=== PATIENT | female | born 1975 | race Caucasian/White ===

== ENCOUNTER 2016-10-03 15:18 | Outpatient (CLI) | payer OTHER | END 2016-10-03 15:19 | disposition critical access hospital (66) | LOC: EMS 15:18 | PROVIDERS: ATTEND Surgery | DX: R09.89 Other specified symptoms and signs involving the circulatory and respiratory systems (principal) | CPT/HCPCS: A0425; A0427 ==

== ENCOUNTER 2016-10-03 15:25 | Emergency (ER) | payer OTHER ==
[2016-10-03] MEDS ORDERED: predniSONE 20 MG TABLET PO STA (15:33)
[2016-10-03] MEDS ORDERED: predniSONE 20 MG TABLET ONE (15:34)
--- NOTE | 2016-10-03 15:47 | ED Physician Documentation ---
History of Present Illness - Stated complaint Stated Complaint: ALL. REACTION - Chief complaint Chief Complaint: Allergic Rx - History obtained from History obtained from: Patient, Family, EMS - History of Present Illness Timing: Today Pain level max: 0 Pain level now: 0 Improved by: epinephrine Worsened by: eating shellfish - Additonal information Additional information: eating shellfish and oysters today. [place] swelling and "scratchy" in her throat. Given 0.3mg IM epi and benadryl enroute. Has not had allergic reactions to shellfish in the past. Review of Systems Constitutional: denies: Fever, Chills Nose: denies: Rhinorrhea / runny nose, Congestion Throat: denies: Sore throat Cardiac: denies: Chest pain / pressure Respiratory: denies: Cough GI: denies: Abdominal Pain, Nausea, Vomiting, Diarrhea Skin: denies: Rash Musculoskeletal: denies: Neck pain, Back pain Neurologic: denies: Focal weakness, Numbness, Headache PD PAST MEDICAL HISTORY - Past Medical History Past Medical History: No - Past Surgical History Past Surgical History: Yes - Present Medications Home Medications: Ambulatory Orders Medication Instructions Recorded Confirmed Loratadine [Claritin] 10 mg PO DAILY PRN 10/03/16 10/03/16 Prednisone 40 mg PO DAILY #10 tablet 10/03/16 10/03/16 - Allergies Allergies/Adverse Reactions: Allergies Allergy/AdvReac Type Severity Reaction Status Date / Time avocado AdvReac Unknown Verified 10/03/16 20:40 banana AdvReac Unknown Verified 10/03/16 20:40 pineapple AdvReac Unknown Verified 10/03/16 20:40 - Social History Does the pt smoke?: No Smoking Status: Never smoker PD ED PE NORMAL - Vitals Vital signs reviewed: Yes - General General: Alert and oriented X 3, No acute distress, Well developed/nourished - HEENT HEENT: PERRL, Moist mucous membranes, Other (mild uvula swelling, otherwise normal pharynx exam. normal phonation. no trismus or stridor) - Neck Neck: Supple, no meningeal sign - Cardiac Cardiac: RRR, Strong equal pulses - Respiratory Respiratory: No respiratory distress, Clear bilaterally - Abdomen Abdomen: Soft, Non tender, Non distended - Derm Derm: Warm and dry, No rash - Neuro Neuro: Alert and oriented X 3 - Psych Psych: Normal mood, Normal affect Results - Vitals Vitals: Vital Signs - 24 hr 10/03/16 10/03/16 10/03/16 15:24 16:19 17:18 Temperature 36.2 C L Heart Rate 123 H 88 83 Respiratory 26 H 16 16 Rate Blood Pressure 152/88 H 127/67 136/73 H O2 Saturation 100 100 100 Oxygen O2 Source Room air PD MEDICAL DECISION MAKING - ED course Complexity details: re-evaluated patient, considered differential, d/w patient ED course: Patient is a 40-year-old female who presents to the emergency department what appears to be an allergic reaction to shellfish. Given epinephrine and Benadryl prior to arrival. Given prednisone here. Observed in the emergency department for over 2 hours post epinephrine administration with no recurrence of symptoms. Tolerating p.o. without difficulty. Normal phonation. Will place on steroids for the next few days and follow-up with her doctor. Patient and family counseled regarding signs and symptoms for which I believe and urgent re- evaluation would be necessary. Patient with good understanding of and agreement to plan and is comfortable going home at this time This document was made in part using voice recognition software. While efforts are made to proofread this document, sound alike and grammatical errors may occur. Departure - Departure Disposition: 01 Home, Self Care Clinical Impression: Allergic reaction Qualifiers: Encounter type: initial encounter Qualified Code(s): T78.40XA - Allergy, unspecified, initial encounter Condition: Good Instructions: ED Allergic Reaction General Other Follow-Up: your,doctor in 1 week [Other] Prescriptions: Prednisone 40 mg PO DAILY #10 tablet Comments: You appear to be allergic to shellfish. Avoid shellfish in the future. Return if you worsen. Your blood pressure was elevated today on check in to the emergency department. This does not mean that you have hypertension, it is a common phenomenon to check into the emergency department and have elevated blood pressure. I recommend that you see your primary care physician within the week to have it rechecked when you're feeling better. Discharge Date/Time: 10/03/16 17:19
[2016-10-03 17:18] VITALS: BP 136/73
== END 2016-10-03 17:19 | disposition home or self-care (01) ==
LOC: ED 15:25
DX: T78.40XA Allergy, unspecified, initial encounter (principal); R03.0 Elevated blood-pressure reading, without diagnosis of hypertension
CPT/HCPCS: 99283

== ENCOUNTER 2016-10-03 20:22 | Outpatient (CLI) | payer OTHER | END 2016-10-03 20:23 | disposition critical access hospital (66) | LOC: EMS 20:22 | PROVIDERS: ATTEND Surgery | DX: R09.89 Other specified symptoms and signs involving the circulatory and respiratory systems (principal) | CPT/HCPCS: A0425; A0427 ==

== ENCOUNTER 2016-10-03 20:37 | Observation (INO) | payer OTHER ==
[2016-10-03] MEDS ORDERED: methylPREDNISolone SUCCINATE 125 MG/2 ML VIAL IVP STA (20:40)
--- NOTE | 2016-10-03 20:42 | ED Physician Documentation ---
History of Present Illness - Stated complaint Stated Complaint: ALLERGIC REACTION - Chief complaint Chief Complaint: Resp - History obtained from History obtained from: Patient, EMS - History of Present Illness Timing: Today Pain level max: 0 Pain level now: 0 Improved by: epinephrine Worsened by: shellfish - Additonal information Additional information: Patient is a 40-year-old female who presents to the emergency department after an allergic reaction earlier today to presumed shellfish. She was observed in the emergency department, felt better and was sent home on steroids. She began to have throat swelling again approximately 3 hours after discharge, was given epinephrine and Benadryl again by EMS and brought back to the emergency department. Currently states that she is feeling better. Per EMS she did have some stridor. Review of Systems Ten Systems: 10 systems reviewed and negative Constitutional: denies: Fever, Chills Nose: denies: Rhinorrhea / runny nose, Congestion Throat: denies: Sore throat Respiratory: denies: Cough GI: denies: Nausea, Vomiting, Diarrhea : denies: Now EGA Skin: denies: Rash Musculoskeletal: denies: Neck pain, Back pain Neurologic: denies: Headache PD PAST MEDICAL HISTORY - Past Medical History Past Medical History: No - Past Surgical History Past Surgical History: Yes - Present Medications Home Medications: Ambulatory Orders Medication Instructions Recorded Confirmed Loratadine [Claritin] 10 mg PO DAILY PRN 10/03/16 10/03/16 Prednisone 40 mg PO DAILY #10 tablet 10/03/16 10/03/16 - Allergies Allergies/Adverse Reactions: Allergies Allergy/AdvReac Type Severity Reaction Status Date / Time avocado AdvReac Unknown Verified 10/03/16 20:40 banana AdvReac Unknown Verified 10/03/16 20:40 pineapple AdvReac Unknown Verified 10/03/16 20:40 - Social History Does the pt smoke?: No Smoking Status: Never smoker PD ED PE NORMAL - Vitals Vital signs reviewed: Yes - General General: Alert and oriented X 3, No acute distress, Well developed/nourished - HEENT HEENT: PERRL, Ears normal, Moist mucous membranes, Other (Mild swelling of the uvula, otherwise normal exam) - Neck Neck: Supple, no meningeal sign - Cardiac Cardiac: RRR, Strong equal pulses - Respiratory Respiratory: No respiratory distress, Clear bilaterally - Abdomen Abdomen: Soft, Non tender, Non distended - Derm Derm: Warm and dry, No rash - Neuro Neuro: Alert and oriented X 3 - Psych Psych: Normal mood, Normal affect Results - Vitals Vitals: Vital Signs - 24 hr 10/03/16 20:37 Temperature 36.6 C Heart Rate 129 H Respiratory 18 Rate Blood Pressure 141/109 H O2 Saturation 98 Oxygen O2 Source Room air PD MEDICAL DECISION MAKING - ED course Complexity details: reviewed old records, considered differential, d/w patient ED course: Patient is a 40-year-old female who presents to the emergency department with an apparent allergic reaction today. She is well-appearing, nontoxic. Afebrile. This is her second emergency department visit today for same, therefore will place her in observation overnight. Discussed the case with Dr. Jones, hospitalist who accepts. This document was made in part using voice recognition software. While efforts are made to proofread this document, sound alike and grammatical errors may occur. Departure - Departure Disposition: ED Place in Observation Clinical Impression: Allergic reaction Qualifiers: Encounter type: initial encounter Qualified Code(s): T78.40XA - Allergy, unspecified, initial encounter Condition: Stable Discharge Date/Time: 10/03/16 21:24
[2016-10-03] MEDS ORDERED: methylPREDNISolone SUCCINATE 125 MG/2 ML VIAL IVP ONE ×2 (20:45→20:51)
[2016-10-03] MEDS ORDERED: SODIUM CHLORIDE FLUSH 0.9% 10 ML SYRINGE IVP PRN (21:01)
[2016-10-03] MEDS: hydrOXYzine PAMOATE 25 MG CAPSULE PO SCH (21:48)
[2016-10-03] MEDS: predniSONE 20 MG TABLET PO SCH (21:48)
[2016-10-03] MEDS: FAMOTIDINE 20 MG TABLET PO SCH (21:48)
[2016-10-03] MEDS: SODIUM CHLORIDE FLUSH 0.9% 10 ML SYRINGE IVP SCH (21:49)
--- NOTE | 2016-10-03 22:32 | HISTORY & PHYSICAL EXAMINATION ---
DATE OF ADMISSION: 10/03/2016 OBSERVATION STATUS PRIMARY CARE PHYSICIAN: None. CHIEF COMPLAINT: Throat swelling, shortness of breath. HISTORY OF PRESENT ILLNESS: This is a 40-year-old female who presented via EMS to the emergency room at about 3 o'clock or so. She had been eating lunch with a friend with mussels and oysters at a [facility] restaurant, she is visiting here from [place], and she has had mussels and oysters many times in t he past without any issues, and developed posterior throat swelling, uvula, with some shortness of br eath with this; 911 was called, she was given epinephrine injection, and brought in to the ER. She w as doing better and discharged to home. However, 2 hours later she developed similar symptoms. She notes the only thing she had was 2 glasse s of wine, which she has not had any problems previously. She has never had any similar symptoms in the past; and since this recurred, she was placed in observation status. PAST MEDICAL HISTORY: None. MEDICATIONS UPON ADMISSION: Loratadine p.r.n. ALLERGIES 1. AVOCADO. 2. BANANA. 3. PINEAPPLE. SOCIAL HISTORY: Smoking: None. Alcohol: None. Lives in [place]. FAMILY MEDICAL HISTORY: No history of any allergies or anaphylactic reaction. REVIEW OF SYSTEMS: All other review of systems reviewed and are negative except as in the HPI. PHYSICAL EXAMINATION VITAL SIGNS: Temperature is afebrile, heart rate 105, blood pressure 120/62, respiratory rate 16, ro om air sat 99%. HEENT: Normocephalic, atraumatic. Mouth: Mild swelling of the uvula noted. NECK: No adenopathy. CHEST: Clear to auscultation. COR: Regular rate and rhythm. S1, S2. ABDOMEN: Soft, nontender, bowel sounds present. EXTREMITIES: Exam reveals no pedal edema. SKIN: No rashes. PSYCHOLOGIC: Mood and affect are appropriate. NEUROLOGIC: Alert and oriented x3. Motor strength is intact bilaterally. LABORATORY: None. ASSESSMENT AND PLAN 1. Anaphylactic reaction, acute, present on admission. Recurred. We will go ahead and initiate pre dnisone 40 mg p.o. daily, start now. We will put her on Atarax 25 mg p.o. q.6 h. and initiate Zantac 150 mg p.o. b.i.d. Monitor for any return of symptoms. Unclear etiology, given the fact that she h ad mussels and oysters multiple times in the past without other problems; may have been one of the ot her elements that she has an allergy to that was problematic. 2. Deep venous thrombosis prophylaxis. Use SCDs. 3. Code status: Patient is FULL CODE. Time spent 60 minutes. JOB #: [id number] EXT JOB #:[id number]
[2016-10-03] MEDS ORDERED: diphenhydrAMINE INJ 50 MG/ML VIAL IVP PRN (23:30)
[2016-10-04] MEDS: SODIUM CHLORIDE FLUSH 0.9% 10 ML SYRINGE IVP SCH (05:47)
[2016-10-04] MEDS: hydrOXYzine PAMOATE 25 MG CAPSULE PO SCH ×2 (05:47→09:24)
[2016-10-04 07:42] VITALS: BP 114/60
[2016-10-04] MEDS: FAMOTIDINE 20 MG TABLET PO SCH (08:37)
[2016-10-04] MEDS: predniSONE 20 MG TABLET PO SCH (08:37)
[2016-10-04] MEDS ORDERED: POLYETHYLENE GLYCOL 3350 17 GM PACKET PO SCH (09:00)
--- NOTE | 2016-10-04 10:40 | Discharge Plan ---
Discharge Plan Disposition: 01 Home, Self Care Condition: Good Prescriptions: predniSONE [Deltasone] 40 mg PO DAILYWM #2 tablet Epinephrine [Epipen 2-Jimbo] 0.3 mg IJ PRN PRN #2 auto.injct PRN Reason: Anaphylaxis Famotidine [Pepcid] 20 mg PO BID #6 tablet hydrOXYzine PAMOATE [Vistaril] 25 mg PO TID #6 capsule Diet: Regular (no shellfish!) Activity Restrictions: No Restrictions Shower Restrictions: No Driving Restrictions: No (vistaril may make you drowsy, avoid driving if so) Instruction Topics: Epinephrine injection Auto-injector Additional Instructions or Follow Up instructions: You had an allergic reaction to shellfish. Do not eat shellfish in the future. Always care an epi pen with you in case of anaphylaxis. Continue steroid x1 more day and antihistamines. Follow-up with allergy MD of choice No Smoking: If you smoke, Please STOP! Call for help.
--- NOTE | 2016-10-04 11:19 | DISCHARGE SUMMARY ---
DATE OF ADMISSION: 10/03/2016 DATE OF DISCHARGE: 10/04/2016 DISCHARGING PROVIDER: DESHAWN Cornelius PRIMARY CARE PROVIDER: None. DISCHARGE DIAGNOSES 1. Anaphylactic reaction, refractory. 2. SHELLFISH ALLERGY. DISCHARGE MEDICATION LIST New medications: 1. Prednisone 40 mg by mouth daily x1Day. 2. Epinephrine Epi-Pen, inject as needed for anaphylaxis. 3. Pepcid 20 mg by mouth twice a day. 4. Vistaril 25 mg by mouth three times a day with meals. FOLLOWUP: Establish with primary care provider once returned to [facility], follow up with PCP or walk-in clinic in 1-3 days if symptoms not resolving. DIET: As tolerated, recommend soft foods until symptoms completely resolve - no shellfish, avocado, banana or pineapple secondary to allergies. ACTIVITY: As tolerated, recommended not driving while taking Vistaril if she has any drowsiness. HOSPITAL COURSE: The patient is a pleasant 40-year-old female with no significant past medical history who presented to the emergency room on the evening of 10/03/2016 after developing throat swelling and shortness of breath after eating mussels and oysters at a local restaurant. No previous history of shellfish allergy. She was given 1 dose of epinephrine IM, symptoms improved and she was discharged home with prescription for oral prednisone. However, 2 hours later symptoms reoccurred and she returned to the emergency department where she was placed on observation status and started on oral steroids as well as scheduled Vistaril and H2 blockers. The patient's symptoms have resolved, she has no residual uvula swelling, no shortness of breath. She is saturating 99 % on room air, is normotensive, and her tachycardia has resolved. The patient is ambulatory, eating without difficulty, and plans to return to the [facility] later today. LABS: None. IMAGING: None. PHYSICAL EXAMINATION VITAL SIGNS: Temperature 36.9 degrees Celsius, heart rate 83 beats per minute, blood pressure 114/60, respiratory rate 16 breaths per minute, O2 saturation 98 % on room air. GENERAL: The patient is a well-developed, well-nourished 40-year-old female sitting up in the bed in no acute distress. She is calm and cooperative with exam with self-reported anxiety. HEART: She has a regular rate and rhythm, palpable peripheral pulses, and no extremity edema. LUNGS: Her respirations are equal and unlabored with clear bilateral breath sounds, no wheezing. MOUTH: She has oral exam with moist mucous membranes, no uvula or tonsillar swelling. ABDOMEN: Soft, nontender with active bowel sounds. She is ambulatory with a steady gait. She has good muscle tone and no neurological deficits. Time spent on discharge is less than 30 minutes. JOB #: [id number] EXT JOB #:[id number] [facility]
== END 2016-10-04 11:10 | disposition home or self-care (01) ==
LOC: EDBD → ED 20:37 → MS 21:01 → UNDOADMOB 21:01
PROVIDERS: ADMIT Specialist; ATTEND Nurse Practitioner Acute Care
DX: T78.02XA Anaphylactic reaction due to shellfish (crustaceans), initial encounter (principal); Z91.018 Allergy to other foods; R03.0 Elevated blood-pressure reading, without diagnosis of hypertension
CPT/HCPCS: 96374; 99217; 99218; 99283; 99284; A9270; J7512